=== PATIENT | female | born 2000 | race Caucasian/White ===

== ENCOUNTER 2020-03-25 22:01 | Emergency (ER) | payer BC ==
[~2020-03-25] VITALS: Ht 162.6 cm; Wt 47.7 kg
[2020-03-25] MEDS ORDERED: LIDOcaine 1% 30ml preserv. free vial IJ ONE (22:15)
[2020-03-25] MEDS ORDERED: CEPH-572 PO (22:39)
[2020-03-25] MEDS ORDERED: acetaminophen 325mg tablet PO ONE (23:05)
[2020-03-25 23:23] VITALS: BP 122/70
== END 2020-03-25 23:31 | disposition home or self-care (01) ==
LOC: ER 22:02
DX: S61.211A Laceration without foreign body of left index finger without damage to nail, initial encounter (principal); Z79.2 Long term (current) use of antibiotics; W26.0XXA Contact with knife, initial encounter; Y93.89 Activity, other specified; Y92.89 Other specified places as the place of occurrence of the external cause; Y99.0 Civilian activity done for income or pay
CPT/HCPCS: 12001; 99283; J2001